=== PATIENT | female | born 1965 | race Caucasian/White ===

== ENCOUNTER → 2018-03-29 | Outpatient (CLI) | payer OTHER | LOC: BMCIMAGING 14:43 | PROVIDERS: ATTEND Orthopaedic Surgery Orthopaedic Surgery of the Spine | DX: Z13.820 Encounter for screening for osteoporosis (principal); M85.89 Other specified disorders of bone density and structure, multiple sites; Z78.0 Asymptomatic menopausal state ==

== ENCOUNTER 2018-04-25 05:47 | Inpatient (IN) | payer BC, OTHER ==
[2018-04-25] MEDS ORDERED: LR 1,000 ML IV ONE (05:55)
[2018-04-25] MEDS ORDERED: NS IV ONE (06:30)
[2018-04-25] MEDS ORDERED: DEXMEDETOMIDINE HCL 400 MCG in NS 100 ML IV ONE (06:30)
[2018-04-25] MEDS ORDERED: *INFUSION*TRANEX ACID 1,000 MG/NS 100 ML IV ONE (06:30)
[2018-04-25] MEDS ORDERED: TRANEXAMIC ACID IV ONE (06:30)
[2018-04-25 06:53] LABS: INR 0.98 (0.83-1.16); PROTIME(PATIENT) 13.2 SEC (12.0-15.0)
[2018-04-25] MEDS ORDERED: ceFAZolin 2 GM/DEXTROSE 100 ML IV ONE (06:58)
[2018-04-25] MEDS ORDERED: TRANEXAMIC ACID 1,000 MG in NS 100 ML IV ONE (06:58)
[2018-04-25] MEDS ORDERED: VANCOMYCIN 1 GM VIAL ONE (06:59)
[2018-04-25] MEDS ORDERED: BUPIVACAINE/EPI 0.5% 30 ML SDV ONE (06:59)
[2018-04-25] MEDS ORDERED: BACITRACIN 50,000 UNITS/10 ML SYR IRR ONE (06:59)
[2018-04-25] MEDS ORDERED: ALBUTEROL 60 PUFFS/8 GM MDI IH PRN (07:00)
--- NOTE | 2018-04-25 07:01 | PDHPUP ---
History & Physical Update H&P update statement: This history and physical update is based on an assessment of the patient which was completed after admission or registration (within 24 hours), but prior to the surgery/procedure. H&P update: H&P reviewed & patient examined, no change in patient's condition since H&P completed
[2018-04-25] MEDS ORDERED: METOCLOPRAMIDE 10 MG/2 ML VIAL ONE (07:02)
[2018-04-25] MEDS ORDERED: RANITIDINE 50 MG/2 ML VIAL ONE (07:02)
[2018-04-25] MEDS ORDERED: MIDAZOLAM 2 MG/2 ML VIAL ONE ×2 (07:03→07:52)
[2018-04-25] MEDS ORDERED: fentaNYL 100 MCG/2 ML INJ ONE ×3 (07:11→12:26)
[2018-04-25] MEDS ORDERED: PROPOFOL/EMULSION 500 MG/50 ML BOTTLE IV ONE ×2 (07:11→09:53)
[2018-04-25] MEDS ORDERED: ALBUMIN 5% 250 ML BOTTLE IV ONE (07:16)
[2018-04-25] MEDS ORDERED: CITRATE DEXTROSE SOLN 500 ML BAG ONE ×2 (07:26→07:30)
[2018-04-25] MEDS ORDERED: SURGIFLO MATRIX KIT WITH THROMBIN 8 ML TP ONE ×2 (07:30→08:02)
[2018-04-25] MEDS ORDERED: PROPOFOL 200 MG/20 ML VIAL ONE (08:08)
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
[2018-04-25] MEDS ORDERED: TRANEXAMIC ACID 1,000 MG/10 ML VIAL ONE (08:45)
[2018-04-25] MEDS ORDERED: NALOXONE HCL 0.4 MG/ML INJ IVP PRN (08:52)
[2018-04-25] MEDS ORDERED: LR 500 ML IV PRN (08:52)
[2018-04-25] MEDS ORDERED: ALBUTEROL 3 ML DEYVIAL IH PRN (08:52)
[2018-04-25] MEDS ORDERED: ONDANSETRON 4 MG/2 ML VIAL IVP PRN ×2 (08:52→12:53)
[2018-04-25] MEDS ORDERED: ONDANSETRON 4 MG/2 ML VIAL ONE (10:02)
[2018-04-25] MEDS ORDERED: CALCIUM CHLORIDE 1 GM/10 ML INJ ONE (10:02)
[2018-04-25] MEDS ORDERED: LIDOCAINE 2% 2 ML INJ ONE (10:02)
[2018-04-25] MEDS ORDERED: ROCURONIUM 50 MG/5 ML VIAL ONE (10:02)
[2018-04-25] MEDS ORDERED: DIAZEPAM 5 MG/ML 1 ML SYR ONE ×2 (10:09→12:27)
[2018-04-25] MEDS ORDERED: ceFAZolin 1 GM VIAL ONE (10:16)
[2018-04-25] MEDS ORDERED: ePHEDrine SULFATE 25 MG/5 ML SYR ONE (10:27)
[2018-04-25] MEDS ORDERED: PHENYLEPHRINE HCL 100 MCG/ML SYR ONE (10:27)
[2018-04-25] MEDS: DIAZEPAM 5 MG/ML 1 ML SYR IVP PRN ×3 (12:29→13:28)
[2018-04-25] MEDS: fentaNYL 100 MCG/2 ML INJ IVP PRN ×2 (12:40→13:28)
[2018-04-25] MEDS ORDERED: LACTULOSE 20 GM/30 ML UDCUP PO PRN (12:53)
[2018-04-25] MEDS ORDERED: BISACODYL 10 MG SUPP PR PRN (12:53)
[2018-04-25] MEDS ORDERED: MAGNESIUM HYDROXIDE 30 ML UDCUP PO PRN (12:53)
[2018-04-25] MEDS ORDERED: diphenhydrAMINE 25 MG CAP PO PRN (12:53)
[2018-04-25] MEDS ORDERED: ONDANSETRON DISINTEGRATING 4 MG TAB PO PRN (12:53)
--- NOTE | 2018-04-25 13:27 | POSTANESTH ---
Post Anesthetic Evaluation Cardiovascular Status: Normal, Stable, Similar to Pre-Op Cond Respiratory Status: Normal, Stable, Similar to Pre-op Cond. Level of Consciousness/Mental Status: Can Participate in Eval Pain Control: Inadeq, Add Tx Required Nausea/Vomiting Control: Adequate, Prn Tx Ordered Complications Possibly Related to Anesthesia: None Noted
--- NOTE | 2018-04-25 13:31 | PDMN ---
Medical Necessity Medical [place] [facility] [place] OP: L4/5, L5/S1 TLIF L4/S1 posterior PLDF
[2018-04-25] MEDS ORDERED: CROMOLYN SODIUM NS PRN (14:00)
[2018-04-25] MEDS: BUDESONIDE/FORMOTEROL 160/4.5 60 PUFFS/MDI IH SCH ×2 (14:06→20:40)
[2018-04-25] MEDS: oxyCODONE IR 5 MG TAB PO PRN ×3 (14:35→21:51)
[2018-04-25] MEDS: METHOCARBAMOL 750 MG TAB PO PRN ×2 (14:35→21:50)
[2018-04-25] MEDS ORDERED: ceFAZolin 2 GM/DEXTROSE 100 ML IV SCH (16:00)
[2018-04-25] MEDS ORDERED: LR 1,000 ML IV SCH (16:00)
--- NOTE | 2018-04-25 17:00 | SUROPNOTE ---
[facility] Operative Report - Surgery Date: 04/25/18 Pre-operative Diagnoses: L4/5, L5/S1 Degenerative disc disease and spondylosis L4/5, L5/S1 Degenerative spondylolisthesis Right L4/5 synovial cyst with right L4, L5 radiculopathy L5 Bilateral pars insufficiency fractures Lumbar spinal stenosis Post-operative Diagnosis: Same Procedures: L4-S1 Posterior Lumbar Decompression and Fusion with Instrumentation Right L4/5, L5/S1 Transforaminal Lumbar Interbody Fusion (TLIF) Structural use of morselized local autograft bone Structural use of allograft Use of intra-operative fluoroscopy Use of computer-aided stereotactic navigation Use of intra-operative neuromonitoring, including EMG, MEP, and SSEP modalities Use of a surgical microscope Surgeon: Ace Franco MD Assist: Taya Maurer Anesthesia: General endotracheal anesthesia Findings: As expected Estimated Blood Loss: 500mL Drains: Hemovac sewn to skin Specimens: None Complications: None Condition: Transferred to PACU in stable condition. Implants: Medtronic screws, NuVasive interbody cages Screws: 6.5mm x 45mm (all 6 screws Rods: 50mm x 2 TLIF cage: L4/5 MLX 8 x 34 x 24 x 12 deg, L5/S1 TLX 20 x 7 x 11 x 26 Allograft: 20mL allograft used structurally Autograft: local bone from decompression used structurally Indications: This patient was seen in my office and diagnosed with degenerative spondylolisthesis and spinal stenosis. She was noted to have a significant synovial cyst at the right L4/5 level which was painful. I have explained all options of treatment for the patient, and the patient has elected to proceed with operative management. I have explained all risks, benefits, and alternatives of the proposed procedure. The risks that we have discussed include , blindness, nerve damage, infection, dural tear, failure of surgery to alleviate pre-operative symptoms, and possible need for further operation. I explained separately the risks of allograft, including infection and disease transfer. In addition to the aforementioned procedure, I discussed with the patient that other procedures may be indicated during the course of surgery that would be considered in the patients best interest. The patient expressed understanding of this and agreed to move forward with operative management. Pre-operative: The proposed incision site was marked in the pre-operative holding area by me. The patient was then taken to the operating room in stable condition. Following smooth induction of general anesthesia, the patient was positioned prone on a Henok table with all down surfaces well-padded. The patient was then prepped and draped in the usual sterile fashion. Pre-operative antibiotics were administered within one hour of the incision. A surgical timeout was performed, and all parties involved in the procedure were in agreement on the correct patient, location, and procedure to be performed. Approach and dissection: The proposed levels were identified using C-arm fluoroscopy and the skin was marked for the proposed incision. A midline incision was then made. Electrocautery was used to dissect the subdermal fat layer down to fascia and to coagulate bleeding vessels. The fascia was spared for later closure. Spinal pause: Two Federica clamps were then placed on the spinous processes at both ends of the dissection. A secondary spinal pause was then performed, and the level was confirmed with all parties participating in the operation. These were noted to be at the L4 level. Navigation: At this point, the patient was covered, and an intra-operative CT scan was performed. Computer-aided stereotactic navigation would be used throughout all of the instrumentation portion of the case. Pedicle screw placement: Using a freehand technique with fluoroscopic assistance, a standard entry point was selected based on bony landmarks. A spray pilot hole was created with a high speed janel. The pedicle tract was then cannulated using a curved Lenke probe. A ball-tipped feeler was then passed through the cannulated tract to ensure that there was no breach on all sides: superior, inferior, medial, lateral, and ventral. A tap was then used up to a size that was 1mm below the final screw size based on pre-operative templating. A ball-tipped feeler was used again in a similar fashion to ensure a safe trajectory without breach. The tract length was then measured and recorded for future pedicle screw selection and placement. The pedicle tract sherlyn then injected with a small amount of microfibrillar collagen agent to ensure hemostasis. This sequence was performed for all levels that would be included in the fusion. An appropriately-sized screw was placed at each level and confirmed fluoroscopically. All screws were then stimulated. Each screw was stimulated and potentials were all above 20 milliAmps. This process was repeated in a similar fashion on the contralateral side. CT imaging: At this point, a second CT scan was performed to ensure that the proper placement of all screws. Decompression: All paraspinal muscles were dissected sub-periostally from the spinous processes and laminae. The dissection was then carried out to include the extent of decompression that was determined before surgery, with care being taken to preserve facet capsules that would not be included in the final fusion. The lateral pars was identified for all levels to be included in the proposed decompression. Using a combination of rongeur, janel, and Kerrison rongeurs, the spinous processes and laminae were removed at all levels to the subarticular lateral recess. Care was taken to leave a minimum of 8mm of bone from the lateral border of the pars at each decompressed level. The ligamentum flavum was resected at all levels. Using a Kerrison rongeur angled back, additional ligamentum flavum was removed from under the caudal aspect of the cephalad-most level, and from under the cephalad aspect of the caudal-most level. Additional care was taken to adequately decompress the lateral recess at all levels. At this time, a ball probe was used to probe all foraminae at the affected levels. Where necessary, a small Kerrison rongeur was used to decompress remaining bone and soft tissue so that all nerve roots would traverse freely through the foraminae. A large cyst was noted at the right L4/5 level. This was stimulated, noted not to be attached to the L4 nerve root, and excised. This was sent to permanent specimen for pathology. TLIF: Based on pre-operative neurological symptoms, a decision was made with the patient to place a TLIF cage in the interbody space. Taking care to avoid breach into the previously created pedicle tract, a facetectomy was performed at the TLIF level using a high speed janel and Kerrison rongeurs. Special care was taken to not use the high speed janel in proximity to the underlying nerve root. Using a Henderson #4, the nerve was protected cephalad and Kambins triangle was identified (bordered by the nerve root cephalad and the thecal sac medially). The disc space was identified by appearance and consistency. With a disc knife angled away from neural structures, the annulus was transected and removed using a disc punch. A disc space dilator was used to free any remaining annulus, which was removed using a disc punch and/or scalpel. All remaining nucleus pulposus and cartilage from both cephalad and caudal end plates were removed using a series of straight and angled disc preparation curettes and paddle nolan. A blunt-tipped long 10mL syringe was then passed into the disc space and flushed in order to remove any additional disc fragments; this was done multiple times until no further loose fragments were produced. Trial TLIF spacers were then passed into the disc space to both dilate the space and adequately size the final implant. Local autograft bone was then combined with allograft bone; 5mL of bone was inserted into the disc space using a specialized bone insertion device, and the remaining bone was placed into the interbody cage. An appropriately-sized cage was selected, packed with allograft and local autograft bone, and attached to an inserted handle. The TLIF cage was then malleted into place and positioning was confirmed by visual inspection and biplanar radiographs. Any bleeding epidural vessels were coagulated using bipolar cautery. An MLX-cage was placed at the L4/5 level, and a 20 deg TLX cage was placed at the L5/S1 level. Bone graft: All bony surfaces were decorticated using a high speed janel, including all facets to be fused. All local autograft bone was cleaned of soft tissue and morselized. All remaining allograft and autograft bone was placed in the facets being fused and lateral to the instrumentation in the posterolateral gutters. Freddie and set screw placement: An appropriately-sized freddie was then placed into the pedicle screw heads, with ample freddie extending from either end. Set screws were then placed into all pedicle screws over the rods, and tensioned using a torque-limited screwdriver. Closure: The surgical field was then copiously irrigated with sterile saline. Vancomycin powder was then applied to the surgical field. A small drain was placed deep to the fascia and brought out of the skin superior and laterally. The drain was then sewn to skin. #1 vicryl suture were used to repair the fascia in an interrupted fashion. Then 2-0 interrupted sutures were used to repair the dermal layer, and a separate 3-0 monofilament suture was used to repair the subcutaneous layer in a running fashion. All sutures used were absorbable. Topical adhesive was then applied to the skin and allowed to dry. A sterile island dressing was applied over the surgical incision. A surgical count was performed before initiation of closure and following the procedure, and all were correct. I was present for all critical portions of the procedure. Surgical microscope use: A surgical microscope was utilized throughout the decompressive portion of this case. This was deemed necessary for safe and accurate surgical decompression of affected nerve roots. Neuromonitoring: SSEP, MEP and EMG were used throughout the case from incision until the beginning of closure. There were no significant changes throughout the case, and SSEP signals were at their pre-surgical baseline levels before surgical closure was initiated. community program assistant: A medical or surgical instrument maker was used throughout the case, and deemed necessary for safe neural retraction, hemostasis, and suction. Recovery: The patient was extubated uneventfully in the operating room. The patient was taken to the recovery room in stable condition. Sequential compression devices for VTE prophylaxis were applied to the patients lower extremities, and were ordered to be used while the patient was non-ambulatory. Chemical VTE prophylaxis was considered to be contraindicated for this patient because of the risk of bleeding near the epidural space. Ace Franco MD
[2018-04-25] MEDS: HYDROmorphONE/DILAUDID 1 MG/ML INJ IVP PRN ×2 (17:34→19:50)
[2018-04-25] MEDS: ceFAZolin 2 GM/DEXTROSE 100 ML IV SCH (19:50)
[2018-04-25] MEDS ORDERED: FAMOTIDINE 20 MG TAB PO SCH (21:00)
[2018-04-25] MEDS: FAMOTIDINE 20 MG TAB PO SCH (21:50)
[2018-04-25] MEDS: SENNOSIDES/DOCUSATE SODIUM TAB PO SCH (21:50)
[2018-04-26] MEDS: ceFAZolin 2 GM/DEXTROSE 100 ML IV SCH (03:21)
[2018-04-26] MEDS: oxyCODONE IR 5 MG TAB PO PRN ×7 (03:25→23:44)
[2018-04-26 06:24] LABS: PLATELET COUNT 243 10^3/uL (150-400)
[2018-04-26] MEDS: BUDESONIDE/FORMOTEROL 160/4.5 60 PUFFS/MDI IH SCH ×2 (08:47→21:23)
[2018-04-26] MEDS: METHOCARBAMOL 750 MG TAB PO PRN ×3 (09:03→16:10)
[2018-04-26] MEDS: FAMOTIDINE 20 MG TAB PO SCH (09:06)
[2018-04-26] MEDS: POLYETHYLENE GLYCOL 3350 17 GM PKT PO PRN (09:08)
[2018-04-26] MEDS: SENNOSIDES/DOCUSATE SODIUM TAB PO SCH ×2 (09:10→21:12)
[2018-04-26] MEDS: HYDROmorphONE/DILAUDID 1 MG/ML INJ IVP PRN (09:25)
--- NOTE | 2018-04-26 10:01 | GDS ---
Dayami underwent an uneventful L4-S1 fusion and decompression with removal of facet cyst on the right o n 04/25/2018. She did quite well from the operation. She progressed well with physical therapy. He r drain was removed. After discharge, patient knows that she is to take pain medication and Tylenol. She is to avoid NSAI Ds for a total of 3 months. She also underwent an endoscopy by the GI service on 04/27/2018. The patient is not to bend, lift, or twist for the next 6 weeks. She is to see me in the office at 2 weeks postop. For all further instructions, the patient has been given a postsurgical booklet with all instructions. She also has my cell phone if any issues or emergencies arise. She is more than w elcome to call me. /[id number]/MODL
--- NOTE | 2018-04-26 12:12 | GCON ---
DATE OF CONSULTATION: 04/26/2018 CHIEF COMPLAINT: Anemia. HISTORY OF PRESENT ILLNESS: I am asked to see this patient in consultation by Dr. Perez for chief c martir of anemia. The patient is a 53-year-old who was admitted yesterday after prolonged back raz latosha. Anesthesiology pre-evaluation noted patient has anemia, and a GI consultation was requested fo r possible upper endoscopy. The patient states she has no prior history of anemia but was taking hig h-dose NSAIDs with generally ibuprofen, taking 3 every 3-4 hours for several weeks for chronic pain. However, she has had no melena, no bright red blood per rectum. No nausea, vomiting, hematemesis. She does have a long history of GERD for which she takes Zantac 75 generally once a day, sometimes tw ice a day, but does supplement with Rolaids and Tums multiple times throughout the day. No dysphagia . She has never had history of ulcers or GI bleeding that she is aware of. She has never had a colo noscopy. The patient does have family history for colon cancer in a maternal aunt. The patient is n ot allowed to have physical therapy and will be of limited mobility for at least 6 weeks. ALLERGIES: The patient reports allergies to Phenergan. MEDICINES: On presentation were Benadryl, Zantac 75, multivitamins, Symbicort, Percocet, cromolyn so dium, albuterol inhaler, and ibuprofen. PAST MEDICAL HISTORY: Chronic low back pain, asthma. FAMILY HISTORY: Colon cancer in an aunt. SOCIAL HISTORY: Drinks occasional alcohol. REVIEW OF SYSTEMS: I performed a complete review of systems which is negative except for the pertine nt positives and negatives noted above in the HPI. PHYSICAL EXAM: VITAL SIGNS: 37.3, BP 128/73, pulse 82. GENERAL: She is alert and oriented. EYES: No scleral icterus. HENT: No oral lesions. CARDIOVASCULAR: Regular rhythm. CHEST: Clear to au scultation. Positive bowel sounds. Soft. NEUROLOGIC: Nonfocal. SKIN: No lesions. LABORATORY DATA: On admission, her H and H were 7.4 and 23.1. This morning, her hemoglobin is 9.1 w ith hematocrit of 27.5, MCV normal at 84.1, white count 7, platelets 243. BUN and creatinine are nor mal at 9 and 0.7. ASSESSMENT: Patient with anemia of unclear cause, although she was taking high-dose nonsteroidal ant iinflammatory drugs. It is quite possible she could have underlying gastritis. Also has frequent un dertreated gastroesophageal reflux disease that also could account for slow blood loss; however, ther e have been no signs of active gastrointestinal bleeding. The patient has never had a colonoscopy. The best approach for this would be to do an upper and lower endoscopy for evaluation of her anemia. However, at this point, the patient would be unable to do a colonoscopy probably for at least 6 week s until she heals from her back surgery. Again, given that she is not having any evidence of active bleeding and is otherwise stable, I would recommend we postpone until she is healed from her back raz latosha and then would do an upper and lower endoscopy. This could be done with our group or a gastroen terology group closer to her home. However, I would recommend that she have a repeat CBC in 4 weeks to assure that this is improving. PLAN: 1. Will recommend upper and lower endoscopy once patient has adequately recovered from her back surg ashly. 2. Repeat CBC in 2-4 weeks with her PCP. 3. The patient is to monitor for any active signs of bleeding. If she should see melena or bright r ed blood, then I would recommend consideration for upper endoscopy in an urgent setting. 4. The patient to avoid NSAIDs. 5. Recommend omeprazole or equivalent PPI to be taken once daily for 3 months. Thank you for this consult. /[id number]/MODL
[2018-04-26] MEDS: PANTOPRAZOLE SODIUM 40 MG TAB PO SCH (12:25)
--- NOTE | 2018-04-26 12:40 | ASMTCMCOM ---
CM Note CM Note Notes: Met with patient and re: discharge planning needs. Patient indicated she was instructed to not follow-up with rehab until week six. Therapy recs reviewed today - HC vs SNF pending patient's progress. Patient resides in [place] and is not familiar with any HC agencies in the area. The would like CM to send some referrals in the area to see who is able to accept in preparation for a possible d/c over the weekend. Referrals sent to [facility], [facility] and [facility], await responses. Needs still to be determined at this time. CM will continue to follow. Plan: TBD, possibly HC? Date Signed: 04/26/2018 12:19 PM Electronically Signed By:Chantelle Myers RN
[2018-04-26 12:58] LABS: PLATELET COUNT 237 10^3/uL (150-400)
[2018-04-26] MEDS ORDERED: PEG 3350/NA SULF,BICARB,CL/KCL (GAVILYTE-G) 4000 ML BTL PO ONE (17:53)
--- NOTE | 2018-04-26 19:00 | GPROG ---
HISTORY: I saw and evaluated Dayami on my morning rounds. Overall, she is doing quite well. She noti [place] complete relief of the right leg pain which she was having before the operation. Her pain is con trolled on oral regimen. PHYSICAL EXAM: Her dressing is clean, dry, intact and left in place. The drain has minimal output. ASSESSMENT AND PLAN: We will check labs as Dayami was transfused 1 unit of blood yesterday. We will a lso set her up for GI consultation as she will be getting some sort of endoscopy tomorrow to assess f or GI bleeding. I will progress her with physical therapy today and manage her expectantly. /[id number]/MODL
[2018-04-27] MEDS: METHOCARBAMOL 750 MG TAB PO PRN ×4 (01:24→20:11)
[2018-04-27] MEDS: oxyCODONE IR 5 MG TAB PO PRN ×5 (02:43→20:11)
[2018-04-27] MEDS: PANTOPRAZOLE SODIUM 40 MG TAB PO SCH (08:30)
[2018-04-27] MEDS: BUDESONIDE/FORMOTEROL 160/4.5 60 PUFFS/MDI IH SCH ×2 (08:31→20:17)
[2018-04-27] MEDS: SENNOSIDES/DOCUSATE SODIUM TAB PO SCH ×2 (08:33→20:19)
[2018-04-27] MEDS: HYDROmorphONE/DILAUDID 1 MG/ML INJ IVP PRN (13:15)
[2018-04-27] MEDS ORDERED: PROPOFOL/EMULSION 500 MG/50 ML BOTTLE IV ONE (13:43)
[2018-04-27] MEDS ORDERED: LIDOCAINE 2% 2 ML INJ ONE ×2 (13:44)
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
--- NOTE | 2018-04-27 14:07 | GIREPORT ---
[facility] Surgical Services - Endoscopy Department Patient Name: Dayami Mckee Procedure Date: 04/27/2018 1:49 PM Patient Type: Inpatient Attending MD/ ER Physician: Haris Alba MD Procedure: Upper GI endoscopy Indications: Heartburn, Iron deficiency anemia due to suspected upper gastrointestin al bleeding Providers: Haris Alba MD Medicines: Propofol per Anesthesia Complications: No immediate complications. Description of Procedure: After obtaining informed consent, the endoscope was passed under direct vision. Throughout the procedure, the patient's blood pressure, pulse, and oxygen saturations were monitored continuously. The Endoscope was intro duced through the mouth, and advanced to the third part of duodenum. The uppe r GI endoscopy was accomplished without difficulty. The patient tolerated th e procedure well. Findings: One cratered esophageal ulcer with no bleeding and no stigmata of recen t bleeding was found in the lower third of the esophagus. The lesion was 10 mm in largest dimension. A medium-sized hiatal hernia was present. One non-bleeding cratered gastric ulcer with no stigmata of bleeding wa s found in the gastric antrum. The lesion was 10 mm in largest dimension. Random biopsies of non-ulcerated mucosa of stomach were taken with a co ld forceps for histology to r/o H. pylori gastritis. The examined duodenum was normal. Estimated Blood Loss: Estimated blood loss: none. Post Op Diagnosis: - Non-bleeding esophageal ulcer. - Medium-sized hiatal hernia. - Non-bleeding gastric ulcer with no stigmata of bleeding. Biopsied. - Normal examined duodenum. Recommendation: - Return patient to hospital [facility] for ongoing care. - Resume regular diet today. - Continue present medications. - Use Protonix (pantoprazole) 40 mg PO daily for 2 months. - Await pathology results. - Repeat upper endoscopy in 2 months at [facility] to check healing. - Perform a screenng colonoscopy in 2 months at [facility]. - The findings and recommendations were discussed with the patient. Attending Participation: I personally performed the entire procedure. Haris Alba MD Haris Alba MD 04/27/2018 2:07:12 PM This report has been signed electronicallyHaris Alba MD Number of Addenda: 0 Note Initiated On: 04/27/2018 1:49 PM [email or web address]
[2018-04-27] MEDS ORDERED: NALOXONE HCL 0.4 MG/ML INJ IVP PRN (14:08)
[2018-04-27] MEDS ORDERED: ONDANSETRON 4 MG/2 ML VIAL IVP PRN (14:08)
[2018-04-27] MEDS ORDERED: fentaNYL 100 MCG/2 ML INJ IVP PRN (14:08)
[2018-04-27] MEDS ORDERED: HYDROmorphONE/DILAUDID 2 MG/ML INJ IVP PRN (14:08)
[2018-04-27] MEDS ORDERED: ALBUTEROL 3 ML DEYVIAL IH PRN (14:08)
--- NOTE | 2018-04-27 14:09 | POSTANESTH ---
Post Anesthetic Evaluation Cardiovascular Status: Normal, Stable Respiratory Status: Normal, Stable Level of Consciousness/Mental Status: Can Participate in Eval Pain Control: Adequate, Prn Tx Ordered Nausea/Vomiting Control: Adequate, Prn Tx Ordered Complications Possibly Related to Anesthesia: None Noted
[2018-04-27] MEDS: POLYETHYLENE GLYCOL 3350 17 GM PKT PO PRN (14:47)
--- NOTE | 2018-04-27 14:57 | ASMTLACE ---
LACE Length of stay for Answers: 4-6 days current admission Acuity / Level of Answers: Yes Care: Did the patient have an inpatient admission? Comorbidities - select Answers: Opioid dependence all that apply / Chronic pain # of Emergency department Answers: 0 visits in the last 6 months Score: 11 Date Signed: 04/27/2018 02:57 PM Electronically Signed By:KEON Garcia
--- NOTE | 2018-04-27 14:58 | ASMTCMCOM ---
CM Note CM Note Notes: Pt medically stable for d/c. MD does not recommend HHC. Updated pt and husb about MD rec for no HHC, they are understanding and feel comfortable going home without it. No CM d/c needs identified. Date Signed: 04/27/2018 02:57 PM Electronically Signed By:KEON Garcia
--- NOTE | 2018-04-28 01:47 | GPROG ---
I saw and evaluated the patient today. She is doing quite well. She notes that the right lower extr emity pain she was having before the operation is now gone or at least nearly completely resolved. PHYSICAL EXAM: She has no sensory, motor, or vascular deficits. The drain is intact and dressing in place and clean and dry. ASSESSMENT/PLAN: Moving forward the patient is to have an endoscopy and colonoscopy today for which she has been n.p.o. Depending on the results of that procedure, I am more than comfortable with the patient being discharged home later today. I will discontinue the drain later today. /[id number]/MODL
[2018-04-28] MEDS: METHOCARBAMOL 750 MG TAB PO PRN ×3 (02:55→12:52)
[2018-04-28] MEDS: PANTOPRAZOLE SODIUM 40 MG TAB PO SCH (08:27)
[2018-04-28] MEDS: BUDESONIDE/FORMOTEROL 160/4.5 60 PUFFS/MDI IH SCH (08:28)
[2018-04-28] MEDS: SENNOSIDES/DOCUSATE SODIUM TAB PO SCH (08:28)
[2018-04-28] MEDS: oxyCODONE IR 5 MG TAB PO PRN ×2 (09:38→12:52)
--- NOTE | 2018-04-28 10:52 | SOAPPROG ---
SOAP Progress Note Assessment/Plan: Assessment: 1. Esophageal and gastric ulcers likely secondary to chronic NSAID use. H. pylori bx pending. 2. SYLVIA secondary to #1; stable. Plan: 1. Protonix 40 mg PO Qam x 2 months. 2. Avoid NSAID's chronically. 3. OTC iron tablet daily x 2 months. 4. I will arrange outpatient EGD and screening colonoscopy for 2 months at our [facility] with propofol (ECOR). Haris Alba MD 04/28/18 10:49 Subjective: CC: Esophageal and gastric ulcers with SYLVIA. Interval HPI: Patient without GI complaints today. Will be D/C'ed home later today. Objective: Vital Signs Temp Pulse Resp BP Pulse Ox 37.3 C 92 14 114/73 99 04/28/18 07:39 04/28/18 07:39 04/28/18 07:39 04/28/18 07:39 04/28/18 07:39 Laboratory Results 04/26/18 12:41 04/26/18 12:41 04/27/18 04/28/18 04/29/18 05:59 05:59 05:59 Intake Total 2250 850 500 Output Total 780 300 Balance 1470 550 500 PT 13.2 SEC (12.0-15.0) 04/25/18 06:25 INR 0.98 (0.83-1.16) 04/25/18 06:25 Physical Exam - Physical Exam General Appearance: WD/WN, alert, no apparent distress Respiratory: chest non-tender, lungs clear, normal breath sounds Cardiac/Chest: normal peripheral pulses, regular rate, rhythm Abdomen: normal bowel sounds, non-tender, soft Skin: normal color, warm/dry Neuro/Psych: alert, normal mood/affect, oriented x 3 ICD10 Worksheet Patient Problems: Problems Problem Status Onset Esophageal ulcer with bleeding Acute Gastric ulcer due to nonsteroidal antiinflammatory drug (NSAID) therapy Acute - ICD10 Problem Qualifiers (1) Esophageal ulcer with bleeding (2) Gastric ulcer due to nonsteroidal antiinflammatory drug (NSAID) therapy
[2018-04-28 11:23] VITALS: BP 101/57
--- NOTE | 2018-04-28 12:59 | SOAPPROG ---
SOAP Progress Note Assessment/Plan: Assessment: Pt seen and evaluated. PE No deficits noted, dssg c/d/i and left in place. She is set up for a safe discharge home. Rx given. Will f/u with GI and take iron as directed. I reinforced that the patient should continue stool softeners. Plan: 04/28/18 12:57 Objective: Vital Signs Temp Pulse Resp BP Pulse Ox 36.3 C 102 H 14 101/57 L 94 04/28/18 11:22 04/28/18 11:22 04/28/18 11:22 04/28/18 11:22 04/28/18 11:22 Laboratory Results 04/26/18 12:41 04/26/18 12:41 04/27/18 04/28/18 04/29/18 05:59 05:59 05:59 Intake Total 2250 850 500 Output Total 780 300 Balance 1470 550 500 PT 13.2 SEC (12.0-15.0) 04/25/18 06:25 INR 0.98 (0.83-1.16) 04/25/18 06:25 ICD10 Worksheet Patient Problems: Problems Problem Status Onset Esophageal ulcer with bleeding Acute Gastric ulcer due to nonsteroidal antiinflammatory drug (NSAID) therapy Acute
--- NOTE | 2018-04-28 14:05 | ASMTCMCOM ---
CM Note CM Note Notes: Medically cleared for discharge to home. No needs at this time. CM available should needs arise. Plan: Dc to home with family support. Date Signed: 04/28/2018 02:05 PM Electronically Signed By:Elizabeth Mojica RN
--- NOTE | 2018-04-29 11:05 | ASDISCHSUM ---
Discharge Information Plan Status:Home with No Needs Medically Cleared to Leave: Discharge Date:04/28/2018 02:40 PM CM D/C Disposition:Home, Routine, Self-Care ADT D/C Disposition:Home, Routine, Self-Care Projected Discharge Date:04/28/2018 11:00 AM Transportation at D/C:Family Discharge Delay Reason: Follow-Up Date:04/28/2018 11:00 AM Discharge Slot: Final Diagnosis: Placement Information Referral Type:*Home Health Care Services Referral ID:[id number] Provider Name: Address 1: Phone Number: Address 2: Fax Number: City: Selection Factors: State: Patient Contact Information Contact Name:FARIBA Relationship: Address:[address] [place], [place] [address]:[facility] Phone: [facility] Code:[place] [address] Email: Financial Information Financial Class:HMO and PPO Plans Primary Plan Desc:[facility] Primary Plan Number:[id number] Secondary Plan Desc: Secondary Plan Number: Assessment Information LACE LACE Length of stay for Answers: 4-6 days current admission Acuity / Level of Answers: Yes Care: Did the patient have an inpatient admission? Comorbidities - select Answers: Opioid dependence all that apply / Chronic pain # of Emergency department Answers: 0 visits in the last 6 months Score: 11 Date Signed: 04/27/2018 02:57 PM Electronically Signed By:KEON Garcia [facility] Progress Note CM Nestor CARREON Note Notes: Met with patient and re: discharge planning needs. Patient indicated she was instructed to not follow-up with rehab until week six. Therapy recs reviewed today - vs SNF pending patient's progress. Patient resides in [place] and is not familiar with any HC agencies in the area. The would like CM to send some referrals in the area to see who is able to accept in preparation for a possible d/c over the weekend. Referrals sent to [facility], [facility] and [facility], await responses. Needs still to be determined at this time. CM will continue to follow. Plan: TBD, possibly HC? Date Signed: 04/26/2018 12:19 PM Electronically Signed By:Chantelle Myers RN [facility] CM Progress Note CM Note CM Note Notes: Pt medically stable for d/c. MD does not recommend HHC. Updated pt and husb about MD rec for no HHC, they are understanding and feel comfortable going home without it. No CM d/c needs identified. Date Signed: 04/27/2018 02:57 PM Electronically Signed By:KEON Garcia [facility] CM Progress Note CM Note CM Note Notes: Medically cleared for discharge to home. No needs at this time. CM available should needs arise. Plan: Dc to home with family support. Date Signed: 04/28/2018 02:05 PM Electronically Signed By:Elizabeth Mojica RN Intervention Information
== END 2018-04-28 14:40 | disposition home or self-care (01) | DRG 460 ==
LOC: F3N 05:47
PROVIDERS: ADMIT Orthopaedic Surgery Orthopaedic Surgery of the Spine; ATTEND Orthopaedic Surgery Orthopaedic Surgery of the Spine
PROC: 0SB20ZX Excision of Lumbar Vertebral Disc, Open Approach, Diagnostic (ICD-10-PCS; principal; 2018-04-25 07:23)
PROC: 0SG30AJ Fusion of Lumbosacral Joint with Interbody Fusion Device, Posterior Approach, Anterior Column, Open Approach (ICD-10-PCS; principal; 2018-04-25 07:23)
PROC: BR191ZZ Fluoroscopy of Lumbar Spine using Low Osmolar Contrast (ICD-10-PCS; principal; 2018-04-25 07:23)
PROC: 4A1004G Monitoring of Central Nervous Electrical Activity, Intraoperative, Open Approach (ICD-10-PCS; principal; 2018-04-25 07:23)
PROC: 0SG00AJ Fusion of Lumbar Vertebral Joint with Interbody Fusion Device, Posterior Approach, Anterior Column, Open Approach (ICD-10-PCS; principal; 2018-04-25 07:23)
PROC: 8E0WXBF Computer Assisted Procedure of Trunk Region, With Fluoroscopy (ICD-10-PCS; principal; 2018-04-25 07:23)
PROC: 30233N1 Transfusion of Nonautologous Red Blood Cells into Peripheral Vein, Percutaneous Approach (ICD-10-PCS; 2018-04-26)
PROC: 0DB68ZX Excision of Stomach, Via Natural or Artificial Opening Endoscopic, Diagnostic (ICD-10-PCS; 2018-04-27)
DX: M48.061 Spinal stenosis, lumbar region without neurogenic claudication (principal); D50.9 Iron deficiency anemia, unspecified; K22.10 Ulcer of esophagus without bleeding; K25.9 Gastric ulcer, unspecified as acute or chronic, without hemorrhage or perforation; M71.38 Other bursal cyst, other site; M43.16 Spondylolisthesis, lumbar region; M43.17 Spondylolisthesis, lumbosacral region; M51.16 Intervertebral disc disorders with radiculopathy, lumbar region; M48.46XA Fatigue fracture of vertebra, lumbar region, initial encounter for fracture; K44.9 Diaphragmatic hernia without obstruction or gangrene; M85.89 Other specified disorders of bone density and structure, multiple sites; J45.909 Unspecified asthma, uncomplicated; K21.9 Gastro-esophageal reflux disease without esophagitis; Z87.891 Personal history of nicotine dependence; Z79.1 Long term (current) use of non-steroidal anti-inflammatories (NSAID)
CPT/HCPCS: 97116-GP; 97162-GP; 97165-GO; 97530-GP; 97535-GO; C1713; J0690; J1170; J2250; J2270; J2370; J2405; J2704; J2765; J2780; J3010; J3360; J3370; P9016; P9040; P9041